=== PATIENT | male | born 1960 | race Caucasian/White ===

== ENCOUNTER 2017-09-26 23:00 | Inpatient (IN) | END 2017-10-08 15:10 | disposition home or self-care (01) | DRG 299 ==

== ENCOUNTER 2017-11-10 01:25 | Inpatient (IN) | END 2017-11-12 15:20 | disposition home or self-care (01) | DRG 312 ==

== ENCOUNTER 2018-04-15 10:00 | Emergency (ER) | END 2018-04-15 13:58 | disposition home or self-care (01) ==

== ENCOUNTER 2018-04-19 20:43 | Emergency (ER) | END 2018-04-19 23:17 | disposition home or self-care (01) ==